=== PATIENT | male | born 1995 | race Caucasian/White ===

== ENCOUNTER 2018-07-25 16:21 | Emergency (ER) | payer SELFPAY ==
[2018-07-25] MEDS ORDERED: HYDROXYZINE PAMOATE 25 MG CAPSULE PO ONE (17:28)
--- NOTE | 2018-07-25 17:29 | ER Document Report ---
ED Medical Screen (RME) - General Chief Complaint: Anxiety Stated Complaint: PSYCH Time Seen by Provider: 07/25/18 17:25 TRAVEL OUTSIDE OF THE [place] IN LAST 30 DAYS: No - HPI Notes: 07/25/18 17:28 Patient is a 22-year-old male with a history of PTSD induced anxiety and panic attacks who presents complaining of increasing frequency of panic attacks over the past couple weeks since he ran out of his Klonopin. Patient states that he moved to the area and has not found a family doctor to refill his medications as of yet. Denies drug allergies. He is otherwise eating and drinking without difficulty. He is urinating normally. He has been trying to supplement with THC. He has not had any SI/HI. No visual or auditory hallucinations. Denies CHRISTIANSEN, fever, neck pain, URI, CP, SOB, Abd pain, dysuria, back pain, or rash. I have treated and performed a rapid initial assessment of this patient. A comprehensive ED assessment and evaluation of the patient, analysis of test results and completion of medical decision making process will be conducted by additional ED providers. PHYSICAL EXAMINATION: GENERAL: Well-appearing, well-nourished and in no acute distress. A&Ox4. Answers questions appropriately. LUNGS: Breath sounds clear to auscultation bilaterally and equal. No wheezes rales or rhonchi. HEART: Regular rate and rhythm without murmurs, rubs, gallops. NEUROLOGICAL: Normal speech, normal gait. Cranial nerves grossly intact. PSYCH: Anxious - Related Data Allergies/Adverse Reactions: No Known Allergies Allergy (Verified 07/25/18 17:22) Past Medical History - Social History Frequency of alcohol use: None Drug Abuse: Marijuana Renal/ Medical History: Denies: Hx Peritoneal Dialysis Past Surgical History: Reports: Hx Appendectomy, Hx Oral Surgery - wisdom teeth, Hx Orthopedic Surgery - shoulder, elbow Physical Exam - Vital signs Vitals: Temp Pulse Resp BP Pulse Ox 98.2 F 57 L 18 148/64 H 98 07/25/18 16:50 07/25/18 16:50 07/25/18 16:50 07/25/18 16:50 07/25/18 16:50 Course - Vital Signs Vital signs: Temp Pulse Resp BP Pulse Ox 98.2 F 57 L 18 148/64 H 98 07/25/18 16:50 07/25/18 16:50 07/25/18 16:50 07/25/18 16:50 07/25/18 16:50
[2018-07-25 18:08] LABS: ABSOLUTE BASOPHILS # (AUTO) 0.1 10^3/uL (0.0-0.2); ABSOLUTE EOSINOPHILS # (AUTO) 0.1 10^3/uL (0.0-0.6); ABSOLUTE LYMPHOCYTES (AUTO) 1.8 10^3/uL (0.5-4.7); ABSOLUTE MONOCYTES (AUTO) 0.7 10^3/uL (0.1-1.4); ABSOLUTE NEUT (AUTO) 4.2 10^3/uL (1.7-8.2); BASOPHILS % (AUTO) 0.7 % (0-2); EOSINOPHILS % (AUTO) 2.1 % (0-6); HEMATOCRIT 47.3 % (37.9-51.0); HEMOGLOBIN 16.1 g/dL (13.5-17.0); LYMPHOCYTES % (AUTO) 26.6 % (13-45); MEAN CORPUSCULAR HEMOGLOBIN 30.3 pg (27.0-33.4); MEAN CORPUSCULAR VOLUME 89 fl (80-97); MONOCYTES % (AUTO) 10.3 % (3-13); PLATELET COUNT 247 10^3/uL (150-450); RED BLOOD COUNT 5.31 10^6/uL (4.35-5.55); RED CELL DISTRIBUTION WIDTH 13.2 % (11.5-14.0); SEGMENTED NEUTROPHILS % (AUTO) 60.3 % (42-78); TOTAL CELLS COUNTED % (AUTO) 100 %; WHITE BLOOD COUNT 6.9 10^3/uL (4.0-10.5)
[2018-07-25 18:29] LABS: ANION GAP 13 (5-19); BLOOD UREA NITROGEN 16 mg/dL (7-20); CALCIUM 9.8 mg/dL (8.4-10.2); CARBON DIOXIDE 26 mmol/L (22-30); CHLORIDE 101 mmol/L (98-107); GLUCOSE 80 mg/dL (75-110); POTASSIUM 4.2 mmol/L (3.6-5.0); SODIUM 140.4 mmol/L (137-145); URINE AMPHETAMINES SCREEN NEGATIVE; URINE BARBITURATES SCREEN NEGATIVE; URINE BENZODIAZEPINES SCREEN NEGATIVE; URINE COCAINE SCREEN NEGATIVE; URINE MARIJUANA (THC) SCREEN NEGATIVE; URINE METHADONE SCREEN NEGATIVE; URINE PHENCYCLIDINE SCREEN NEGATIVE
--- NOTE | 2018-07-25 20:31 | ER Document Report ---
ED General - General Chief Complaint: Anxiety Stated Complaint: PSYCH Time Seen by Provider: 07/25/18 17:25 Notes: Patient is a 23-year-old male with past medical history of PTSD and anxiety who presents with worsening anxiety attacks. The patient reports that he was on clonazepam for the past 1 month for these symptoms and states that it did improve the frequency of his panic attacks and general anxiety but has since run out of this medication. States that his anxiety is usually triggered by nightmares that he has associated with his PTSD and that he continues to think about these nightmares throughout the day worsening his anxiety states that he had a panic attack for similar reason prior to coming to the hospital today. States that his symptoms have improved receiving hydroxyzine in triage. He denies any suicidal or homicidal ideation. Nothing is necessarily new or different about his symptoms today other than that he does not have his normal medication. Does not have a local psychiatric provider. Denies any acute medi leigh complaints. TRAVEL OUTSIDE OF THE [place] IN LAST 30 DAYS: No - Related Data Allergies/Adverse Reactions: No Known Allergies Allergy (Verified 07/25/18 17:22) Past Medical History - General Information source: Patient - Social History Smoking Status: Current Every Day Smoker Frequency of alcohol use: None Drug Abuse: Marijuana Family History: Reviewed & Not Pertinent Patient has suicidal ideation: No Patient has homicidal ideation: No Renal/ Medical History: Denies: Hx Peritoneal Dialysis Past Surgical History: Reports: Hx Appendectomy, Hx Oral Surgery - wisdom teeth, Hx Orthopedic Surgery - shoulder, elbow Review of Systems - Review of Systems Notes: Constitutional: Negative for fever. HENT: Negative for sore throat. Eyes: Negative for visual changes. Cardiovascular: Negative for chest pain. Respiratory: Negative for shortness of breath. Gastrointestinal: Negative for abdominal pain, vomiting or diarrhea. Genitourinary: Negative for dysuria. Musculoskeletal: Negative for back pain. Skin: Negative for rash. Neurological: Negative for headaches, weakness or numbness. 10 point ROS negative except as marked above and in HPI. Physical Exam - Vital signs Vitals: Temp Pulse Resp BP Pulse Ox 98.2 F 57 L 18 148/64 H 98 07/25/18 16:50 07/25/18 16:50 07/25/18 16:50 07/25/18 16:50 07/25/18 16:50 Interpretation: Normal Notes: PHYSICAL EXAMINATION: GENERAL: Well-appearing, well-nourished and in no acute distress. HEAD: Atraumatic, normocephalic. EYES: Pupils equal round and reactive to light, extraocular movements intact, sclera anicteric, conjunctiva are normal. ENT: nares patent, oropharynx clear without exudates. Moist mucous membranes. NECK: Normal range of motion, supple without lymphadenopathy LUNGS: Breath sounds clear to auscultation bilaterally and equal. No wheezes rales or rhonchi. HEART: Regular rate and rhythm without murmurs ABDOMEN: Soft, nontender, normoactive bowel sounds. No guarding, no rebound. No masses appreciated. EXTREMITIES: Normal range of motion, no pitting or edema. No cyanosis. NEUROLOGICAL: No focal neurological deficits. Moves all extremities spontaneously and on command. PSYCH: Normal mood, normal affect. SKIN: Warm, Dry, normal turgor, no rashes or lesions noted. Course - Re-evaluation Re-evalutation: 07/25/18 20:29 Patient presents with a history of PTSD, frequent panic attacks, states that he is currently on clonazepam and is requesting a refill of this medication. I have advised him against the use of benzodiazepines on a chronic basis. He denies any acute physical conditions or concerns today. States that nightmares often trigger his anxiety, he begins thinking about the nightmares throughout the day and continues to trigger panic attacks. The patient will be started on hydroxyzine and has had appropriate response to here in the emergency department. I provided him with a list of resources for outpatient psychiatric care. At this time will discharge with return precautions and follow-up recommendations. Verbal discharge instructions given a the bedside and [facility] for questions given. Medication warnings reviewed. Patient is in agreement with this plan and has verbalized understanding of return precautions and the need for primary care follow-up in the next 24-72 hours. - Vital Signs Vital signs: Temp Pulse Resp BP Pulse Ox 97.9 F 67 18 149/87 H 97 07/25/18 20:45 07/25/18 20:45 07/25/18 20:45 07/25/18 20:45 07/25/18 20:45 - Laboratory Result Diagrams: 07/25/18 17:39 07/25/18 17:39 Discharge - Discharge Clinical Impression: Anxiety, PTSD (post-traumatic stress disorder), Panic attacks Condition: Good Disposition: HOME, SELF-CARE Instructions: Anxiety ([facility]) Additional Instructions: Please return if you have thoughts of wanting to hurt yourself, hurt others, or have any other symptoms that are concerning to you. Prescriptions: Hydroxyzine HCl [Atarax 50 mg Tablet] 50 mg PO TID PRN #60 tablet PRN Reason:
[2018-07-25 21:58] VITALS: BP 149/87
== END 2018-07-25 20:45 | disposition home or self-care (01) ==
LOC: ER 16:21
DX: F41.9 Anxiety disorder, unspecified (principal); F43.10 Post-traumatic stress disorder, unspecified; F17.200 Nicotine dependence, unspecified, uncomplicated
CPT/HCPCS: 36415; 80048; 80307; 85025; 99283